=== PATIENT | female | born 1995 | race Caucasian/White ===

== ENCOUNTER → 2017-07-20 | Emergency (ER) | payer MEDICAID, OTHER | LOC: NAV ERS 18:18 | DX: Z53.21 Procedure and treatment not carried out due to patient leaving prior to being seen by health care provider (principal) ==

== ENCOUNTER 2017-12-09 13:19 | Emergency (ER) | payer OTHER | END 2017-12-09 14:30 | disposition home or self-care (01) | LOC: NAV ERS 13:19 | DX: S91.311D Laceration without foreign body, right foot, subsequent encounter (principal) ==

== ENCOUNTER 2020-01-09 17:34 | Emergency (ER) | payer OTHER ==
[2020-01-10 15:33] LABS: SARS-CoV-2 MS2 Positive; SARS-CoV-2 N Gene Negative; SARS-CoV-2 S Gene Negative; SARS-CoV-2 orf1ab Negative
== END 2020-01-09 18:20 | disposition home or self-care (01) ==
LOC: NAV ERS 17:34
DX: R05 Cough (principal); Z20.828 Contact with and (suspected) exposure to other viral communicable diseases; F17.210 Nicotine dependence, cigarettes, uncomplicated
CPT/HCPCS: 87635; 99283; U0003

== ENCOUNTER 2020-01-27 12:23 | Emergency (ER) | payer OTHER ==
[2020-01-28 15:30] LABS: SARS-CoV-2 MS2 Positive; SARS-CoV-2 N Gene Negative; SARS-CoV-2 S Gene Negative; SARS-CoV-2 by NAA Not Detected (NotDetected); SARS-CoV-2 orf1ab Negative
== END 2020-01-27 13:30 | disposition home or self-care (01) ==
LOC: NAV ERS 12:23
DX: Z20.828 Contact with and (suspected) exposure to other viral communicable diseases (principal)
CPT/HCPCS: 87635; 99283; U0003

== ENCOUNTER 2021-06-26 14:48 | Emergency (ER) | payer BC, MEDICAID, OTHER, SELFPAY | END 2021-06-26 15:25 | LOC: NAV ERS 14:48 | DX: B34.9 Viral infection, unspecified (principal); Z20.822 Contact with and (suspected) exposure to COVID-19 | CPT/HCPCS: 99283; U0003; U0005 ==